=== PATIENT | female | born 2000 | race Caucasian/White ===

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

== ENCOUNTER 2022-01-30 10:24 | Emergency (ER) | payer OTHER, MEDICAID, SELFPAY ==
[2022-01-30 10:27] VITALS: BP 133/63; PULSE 63; RESP 16; TEMP 37.2; O2SAT 97; BMI 28.0
--- NOTE | 2022-01-30 10:34 | DI.US.S_ITS ---
PROCEDURE: US PELVIC COMPLETE INDICATIONS: hx complex ovarian cyst, pelvic pain TECHNIQUE: Real-time scanning was performed of the pelvic organs, with image documentation. Additional endovaginal scanning was necessary due to incomplete visualization of the adnexal and endometrial structures by transabdominal scanning. COMPARISON: Merged With [facility], US, US PELVIC COMPLETE, 10/23/2021, 16:05. FINDINGS: Uterus: Uterus is anteverted and normal in size at 7.6 x 3.5 x 4.4 cm. The myometrium is homogeneous. The endometrium measures 4 mm combined thickness. Ovaries: The right ovary measures 3.4 x 2.6 x 2 cm and demonstrates more than 12 follicles. The left ovary measures 6 x 2.8 x 4.2 cm and demonstrates a complex hyperechoic mass that measures 4.2 x 2.7 x 3.6 cm, which previously measured 5.8 x 3.3 x 4 cm. Normal appearing arterial waveforms are confirmed to each ovary. No adnexal masses are seen on either side. Other: No pathologic free abdominal or pelvic fluid. IMPRESSION: Apparent left ovarian dermoid seen, which is not enlarged compared to the prior ultrasound. No findings of ovarian torsion are seen. More than 12 follicles can be seen involving the right ovary, which is consistent with polycystic ovarian syndrome. We strive to produce accurate, complete, and clear reports of imaging services. To assist us in improving patient care, this report was composed using standard report templates and voice recognition software. Therefore, it may contain abnormal punctuation, insertions and/or omissions. Occasional wrong-word or sound-alike substitutions may occur. Though we review the report and make efforts to correct it, we do recommend that the report be read carefully in proper context to recognize any text inaccuracies. Dictated by: Jasibr Moseley M.D. on 01/30/2022 at 11:21 Approved by: Jasbir Moseley M.D. on 01/30/2022 at 11:24
[2022-01-30 10:46] LABS: Add Manual Diff / Slide Review NO; Basophils Absolute Auto 0 /uL (0-100); Basophils Percent Auto 0.7 % (0-2); Eosinophils Absolute Auto 600 /uL (0-450); Eosinophils Percent Auto 9.1 % (2-4); Hematocrit 36.9 % (36-46); Hemoglobin 12.4 g/dL (12.0-16.0); Lymphocytes Absolute Auto 1100 /uL (1100-4500); Lymphocytes Percent Auto 17.5 % (25-40); Mean Corpuscular HGB Conc 33.7 % (30-36); Mean Corpuscular Hemoglobin 29.4 PG (26-34); Mean Corpuscular Volume 87.3 fL (80-100); Monocytes Absolute Auto 500 /uL (0-900); Monocytes Percent Auto 8.4 % (3-14); Neutrophils Absolute Auto 4100 /uL (1500-7000); Neutrophils Percent Auto 64.3 % (50-75); Platelet Count 267 X10^3/uL (150-400); Red Blood Cell Count 4.22 X10^6/uL (4.0-5.2); Red Cell Distribution Width 14.4 % (11.6-14.8); White Blood Cell Count 6.4 X10^3/uL (4.5-11.0)
[2022-01-30 10:48] LABS: Prothrombin Time 11.8 SECONDS (10.1-12.7)
[2022-01-30 10:51] LABS: PTT Partial Thromboplastin Tim 32 SECONDS (26-36)
[2022-01-30 11:03] LABS: Alanine Aminotransferase 13 IU/L (<35); Albumin 4.2 g/dL (3.5-5.0); Albumin Globulin Ratio 1.4 (1.0-2.8); Alkaline Phosphatase 69 U/L (38-126); Aspartate Aminotransferase 26 IU/L (14-36); BUN Creatinine Ratio 10.5 (6-22); Bilirubin Total 0.8 mg/dL (0.2-1.3); Blood Urea Nitrogen 8 mg/dL (7-17); Calcium 9.4 mg/dL (8.4-10.2); Carbon Dioxide 22 mmol/L (22-32); Chloride 110 mmol/L (98-107); Estimated Glomerular Filt Rate > 60 mL/min (>60); Globulin 3.1 g/dL (1.7-4.1); Glucose 113 mg/dL (70-100); HEMOLYSIS 25 (0-50); Lipase 49 U/L (23-300); Potassium 4.1 mmol/L (3.4-5.1); Sodium 139 mmol/L (137-145); Total Protein 7.3 g/dL (6.3-8.2)
--- NOTE | 2022-01-30 12:28 | ED_ITS ---
HPI - Abdominal Pain <Wang Hermosillo PA-C - Last Filed: 01/30/22 13:27> General Chief Complaint: Abdominal Pain Stated Complaint: abd pain Time Seen by Provider: 01/30/22 10:33 Mode of arrival: EMS History of Present Illness HPI narrative: Patient is a 21-year-old female who presents to the emergency room today with complaint of abdominal pain started this morning. No shortness with this abdominal pain has been going on for multiple months now this started and around August. States that the pain has been going on since August and has varied in his presentation. She states the pain ranges from a stabbing burning to a dull ache. She states this morning that the pain was more of a burning that peaked as a throbbing nerve type pain in the entire lower abdomen. Also describes the pain as being about 5-6 in intensity at this time. States the tingling is throughout the entire abdomen. Also admits to an ovarian cyst that was di agnosed last year in November and is scheduled for surgery on the 08 of February to have it removed. Was told by her provider at [facility] Dr. Burnette that all her symptoms completely related to disease. Also has a scheduled appointment with her PCP on February 08 where she will be receiving a referral to coding quality analyst. Ovarian cyst was diagnosed at a hospital in [facility] and was where she met Dr. Burnette. Also states that Dr. Burnette wants to rule her out for polycystic ovarian syndrome that he will do at her preop visit. Admits to history of anxiety and history of Kanavel hyperemesis syndrome. Patient also states that her appendix was removed 7 years ago. Denies any other concerns at this time Related Data Previous Rx's Medication Instructions Recorded doxycycline hyclate 100 mg tablet 100 mg PO BID #20 tabs 12/25/20 Allergies Allergy/AdvReac Type Severity Reaction Status Date / Time amoxicillin [AMOXICILLIN] Allergy Unknown Verified 10/23/21 11:15 Review of Systems <Wang Hermosillo PA-C - Last Filed: 01/30/22 13:27> Review of Systems Narrative: REVIEW OF SYSTEMS:. General: No weight change, generally healthy, no change in strength or exercise tolerance. No fever/chill. No fatigue. Head: No headaches, no vertigo, no injury. Eyes: Normal vision, no diplopia, no tearing, no scotomata, no pain. Ears: No change in hearing, no tinnitus, no bleeding, no vertigo. Nose: No epistaxis, no coryza, no obstruction, no discharge. Mouth: No dental difficulties, no gingival bleeding, no use of dentures. Neck: No stiffness, no pain, no tenderness, no noted masses. Chest: No dyspnea, no wheezing, no hemoptysis, no cough. Heart: No chest pains, no palpitations, no syncope, no orthopnea. Abdomen: Abdominal pain Musculoskeletal: No pain in muscles or joints, no limitation of range of motion, no paresthesia or numbness. Neurologic: No weakness, no tremor, no seizures, no changes in mentation, no ataxia. Psychiatric: No depressive symptoms, no changes in sleep habits, no changes in thought content.. Patient History <Wang Hermosillo PA-C - Last Filed: 01/30/22 13:27> Social History Smoking Status: Current some day smoker Smoking Status: Current some day smoker tobacco type: vaping alcohol intake frequency: holidays/special occasions only Substance Use Type: marijuana Exam <Wang Hermosillo PA-C - Last Filed: 01/30/22 13:27> Narrative Exam Narrative: Physical Exam: General: Normal appearance, well developed, well nourished, alert, and awake. Not in acute distress. ? Head: Normocephalic, no lesions. ?? Eyes: PERRLA, EOM's full, conjunctivae clear. ? Ears: EAC's clear, TM's normal. ?? Throat: Clear, no exudates, no lesions. ?? Neck: Supple, no masses, no thyromegaly, no bruits. ?? Chest: Lungs clear, no rales, no rhonchi, no wheezes. ?? Heart: RR, no murmurs, no rubs, no gallops. ?? Neuro: Physiological, no localizing findings, CN2-12 intact. ?? Extremities: Warm, well perfused, FROM, no deformities, no edema, no erythema. ?? PSYCHIATRIC: The mood is good, no blunted affect. Speech is clear. Thought process is linear, thought content is appropriate. The voice is without significant inflection.. Gastrointestinal: Soft; tenderness to palpation in the left upper quadrant and bilateral lower quadrants; ND; Pos BS with mild rebound tenderness in the left upper quadrant. rebound tenderness. No scars or major deformities noted on Visual Inspection. Positive CVA tenderness to left side. Initial Vital Signs Initial Vital Signs: Vital Signs Temperature 98.9 F 01/30/22 10:27 Pulse Rate 63 01/30/22 10:27 Respiratory Rate 16 01/30/22 10:27 Blood Pressure 133/63 01/30/22 10:27 Pulse Oximetry 97 01/30/22 10:27 Oxygen Delivery Method 01/30/22 10:27 <Arcelia Retana DO - Last Filed: 02/05/22 08:14> Initial Vital Signs Initial Vital Signs: Vital Signs Temperature 98.9 F 01/30/22 10:27 Pulse Rate 63 01/30/22 10:27 Respiratory Rate 16 01/30/22 10:27 Blood Pressure 133/63 01/30/22 10:27 Pulse Oximetry 97 01/30/22 10:27 Oxygen Delivery Method 01/30/22 10:27 Course <Wang Hermosillo PA-C - Last Filed: 01/30/22 13:27> Orders Ordered: ED Orders 01/30/22 10:29 EKG-12 Lead Stat 01/30/22 10:30 Complete Blood Count AUTO DIFF Stat Comprehensive Metabolic Panel Stat Lipase Stat Partial Thromboplastin Time Stat Prothrombin Time INR Stat 01/30/22 10:34 US pelvic complete Stat Vital Signs Vital signs: Vital Signs - 8 hr 01/30/22 10:27 Temperature 98.9 F Pulse Rate 63 Respiratory Rate 16 Blood Pressure 133/63 Pulse Oximetry 97 Oxygen Delivery Method Room Air <DO Joanne Vallejo Last Filed: 02/05/22 08:14> Orders Ordered: ED Orders 01/30/22 10:29 EKG-12 Lead Stat 01/30/22 10:30 Complete Blood Count AUTO DIFF Stat Comprehensive Metabolic Panel Stat Lipase Stat Partial Thromboplastin Time Stat Prothrombin Time INR Stat 01/30/22 10:34 US pelvic complete Stat Vital Signs Vital signs: Vital Signs - 8 hr 01/30/22 10:27 Temperature 98.9 F Pulse Rate 63 Respiratory Rate 16 Blood Pressure 133/63 Pulse Oximetry 97 Oxygen Delivery Method Room Air MDM - Abdominal Pain <NURIA Keller Last Filed: 01/30/22 13:27> Lab Data Result diagrams: 01/30/22 10:30 01/30/22 10:30 Labs: Lab Results 01/30/22 01/30/22 01/30/22 Range/Units 10:30 10:30 10:30 WBC 6.4 (4.5-11.0) X10^3/uL RBC 4.22 (4.0-5.2) X10^6/uL Hgb 12.4 (12.0-16.0) g/dL Hct 36.9 (36-46) % MCV 87.3 (80-100) fL MCH 29.4 (26-34) PG MCHC 33.7 (30-36) % RDW 14.4 (11.6-14.8) % Plt Count 267 (150-400) X10^3/uL Neut % (Auto) 64.3 (50-75) % Lymph % (Auto) 17.5 L (25-40) % Newton % (Auto) 8.4 (3-14) % Eos % (Auto) 9.1 H (2-4) % Baso % (Auto) 0.7 (0-2) % Neut # (Auto) 4100 (5721-7720) /uL Lymph # (Auto) 1100 (1315-3829) /uL Newton # (Auto) 500 (0-900) /uL Eos # (Auto) 600 H (0-450) /uL Baso # (Auto) 0 (0-100) /uL PT 11.8 (10.1-12.7) SECONDS INR 1.0 (0.9-1.3) APTT 32 (26-36) SECONDS Sodium 139 (137-145) mmol/L Potassium 4.1 (3.4-5.1) mmol/L Chloride 110 H (98-107) mmol/L Carbon Dioxide 22 (22-32) mmol/L BUN 8 (7-17) mg/dL Creatinine 0.76 (0.52-1.04) mg/dL Estimated GFR > 60 (>60) mL/min BUN/Creatinine Ratio 10.5 (6-22) Glucose 113 H (70-100) mg/dL Calcium 9.4 (8.4-10.2) mg/dL Total Bilirubin 0.8 (0.2-1.3) mg/dL AST 26 (14-36) IU/L ALT 13 (<35) IU/L Alkaline Phosphatase 69 (38-126) U/L Total Protein 7.3 (6.3-8.2) g/dL Albumin 4.2 (3.5-5.0) g/dL Globulin 3.1 (1.7-4.1) g/dL Albumin/Globulin Ratio 1.4 (1.0-2.8) Lipase 49 (23-300) U/L Urine RBC (0-5/HPF) Urine WBC (0-5/HPF) Urine Bacteria (None) Ur Culture Indicated? 01/30/22 Range/Units 12:57 WBC (4.5-11.0) X10^3/uL RBC (4.0-5.2) X10^6/uL Hgb (12.0-16.0) g/dL Hct (36-46) % MCV (80-100) fL MCH (26-34) PG MCHC (30-36) % RDW (11.6-14.8) % Plt Count (150-400) X10^3/uL Neut % (Auto) (50-75) % Lymph % (Auto) (25-40) % Newton % (Auto) (3-14) % Eos % (Auto) (2-4) % Baso % (Auto) (0-2) % Neut # (Auto) (0990-1343) /uL Lymph # (Auto) (7644-8424) /uL Newton # (Auto) (0-900) /uL Eos # (Auto) (0-450) /uL Baso # (Auto) (0-100) /uL PT (10.1-12.7) SECONDS INR (0.9-1.3) APTT (26-36) SECONDS Sodium (137-145) mmol/L Potassium (3.4-5.1) mmol/L Chloride (98-107) mmol/L Carbon Dioxide (22-32) mmol/L BUN (7-17) mg/dL Creatinine (0.52-1.04) mg/dL Estimated GFR (>60) mL/min BUN/Creatinine Ratio (6-22) Glucose (70-100) mg/dL Calcium (8.4-10.2) mg/dL Total Bilirubin (0.2-1.3) mg/dL AST (14-36) IU/L ALT (<35) IU/L Alkaline Phosphatase (38-126) U/L Total Protein (6.3-8.2) g/dL Albumin (3.5-5.0) g/dL Globulin (1.7-4.1) g/dL Albumin/Globulin Ratio (1.0-2.8) Lipase (23-300) U/L Urine RBC 1-5/hpf (0-5/HPF) Urine WBC None seen (0-5/HPF) Urine Bacteria None seen (None) Ur Culture Indicated? Cult not indicated Point of care testing: Point of Care Testing Test Results Negative Urine Dip Bedside Urine Glucose Negative Bedside Urine Bilirubin - Negative Bedside Urine Ketone - Negative Urine Specific [place] 1.010 Bedside Urine Occult Blood +++ Bedside Urine pH 8.5 Bedside Urine Protein - Negative Bedside Urine Urobilinogen - Negative Bedside Urine Nitrite - Negative Bedside Urine Leukocytes - Negative Esterase Imaging Data US - abdomen: Radiologist's Impression: PROCEDURE: US PELVIC COMPLETE INDICATIONS: hx complex ovarian cyst, pelvic pain TECHNIQUE: Real-time scanning was performed of the pelvic organs, with image documentation. Additional endovaginal scanning was necessary due to incomplete visualization of the adnexal and endometrial structures by transabdominal scanning. COMPARISON: [facility], , US PELVIC COMPLETE, 10/23/2021, 16:05. FINDINGS: Uterus: Uterus is anteverted and normal in size at 7.6 x 3.5 x 4.4 cm. The myometrium is homogeneous. The endometrium measures 4 mm combined thickness. Ovaries: The right ovary measures 3.4 x 2.6 x 2 cm and demonstrates more than 12 follicles. The left ovary measures 6 x 2.8 x 4.2 cm and demonstrates a complex hyperechoic mass that measures 4.2 x 2.7 x 3.6 cm, which previously measured 5.8 x 3.3 x 4 cm. Normal appearing arterial waveforms are confirmed to each ovary. No adnexal masses are seen on either side. Other: No pathologic free abdominal or pelvic fluid. IMPRESSION: Apparent left ovarian dermoid seen, which is not enlarged compared to the prior ultrasound. No findings of ovarian torsion are seen. More than 12 follicles can be seen involving the right ovary, which is consistent with polycystic ovarian syndrome. We strive to produce accurate, complete, and clear reports of imaging services. To assist us in improving patient care, this report was composed using standard report templates and voice recognition software. Therefore, it may contain abnormal punctuation, insertions and/or omissions. Occasional wrong-word or sound-alike substitutions may occur. Though we review the report and make efforts to correct it, we do recommend that the report be read carefully in proper context to recognize any text inaccuracies. Dictated by: Jasbir Moseley M.D. on 01/30/2022 at 11:21 Approved by: Jasbir Moseley M.D. on 01/30/2022 at 11:24 [facility] Narrative Medical decision making narrative: Patient is a 21-year-old female who presents to the emergency room today with complaint of abdominal pain that started in August of this year but peaked this morning. Pain is described as a burning throbbing tingling pain throughout the entire abdominal area. Intensity of pain is about a 5-6 at this time. Patient is not requesting any pain medicine. Patient has been seen a woman's health provider and has surgery scheduled to remove a ovarian cyst on the 08 of February. Patient also already has an appointment scheduled with her PCP to be scheduled for permanent coding quality analyst provider on the 11 of February. Patient also will be discussed discussing workup to rule out polycystic ovarian syndrome with her provider at her preop visit. Ultrasound done confirm cyst to be present and not enlarged compared to prior ultrasound. Blood Labs do not identify any current infection. Urinalysis to include test were ordered and results were negative and unremarkable.. Patient states she is okay in regards to pain and does not need any pain management at this time. And agrees that she will follow-up with her OBGYN and PCP providers. Patient to be discharged and agrees with plan. <Arcelia Retana, DO - Last Filed: 02/05/22 08:14> Lab Data Labs: Lab Results 01/30/22 01/30/22 01/30/22 Range/Units 10:30 10:30 10:30 WBC 6.4 (4.5-11.0) X10^3/uL RBC 4.22 (4.0-5.2) X10^6/uL Hgb 12.4 (12.0-16.0) g/dL Hct 36.9 (36-46) % MCV 87.3 (80-100) fL MCH 29.4 (26-34) PG MCHC 33.7 (30-36) % RDW 14.4 (11.6-14.8) % Plt Count 267 (150-400) X10^3/uL Neut % (Auto) 64.3 (50-75) % Lymph % (Auto) 17.5 L (25-40) % Newton % (Auto) 8.4 (3-14) % Eos % (Auto) 9.1 H (2-4) % Baso % (Auto) 0.7 (0-2) % Neut # (Auto) 4100 (8454-2174) /uL Lymph # (Auto) 1100 (2551-2502) /uL Newton # (Auto) 500 (0-900) /uL Eos # (Auto) 600 H (0-450) /uL Baso # (Auto) 0 (0-100) /uL PT 11.8 (10.1-12.7) SECONDS INR 1.0 (0.9-1.3) APTT 32 (26-36) SECONDS Sodium 139 (137-145) mmol/L Potassium 4.1 (3.4-5.1) mmol/L Chloride 110 H (98-107) mmol/L Carbon Dioxide 22 (22-32) mmol/L BUN 8 (7-17) mg/dL Creatinine 0.76 (0.52-1.04) mg/dL Estimated GFR > 60 (>60) mL/min BUN/Creatinine Ratio 10.5 (6-22) Glucose 113 H (70-100) mg/dL Calcium 9.4 (8.4-10.2) mg/dL Total Bilirubin 0.8 (0.2-1.3) mg/dL AST 26 (14-36) IU/L ALT 13 (<35) IU/L Alkaline Phosphatase 69 (38-126) U/L Total Protein 7.3 (6.3-8.2) g/dL Albumin 4.2 (3.5-5.0) g/dL Globulin 3.1 (1.7-4.1) g/dL Albumin/Globulin Ratio 1.4 (1.0-2.8) Lipase 49 (23-300) U/L Urine RBC (0-5/HPF) Urine WBC (0-5/HPF) Urine Bacteria (None) Ur Culture Indicated? 01/30/22 Range/Units 12:57 WBC (4.5-11.0) X10^3/uL RBC (4.0-5.2) X10^6/uL Hgb (12.0-16.0) g/dL Hct (36-46) % MCV (80-100) fL MCH (26-34) PG MCHC (30-36) % RDW (11.6-14.8) % Plt Count (150-400) X10^3/uL Neut % (Auto) (50-75) % Lymph % (Auto) (25-40) % Newton % (Auto) (3-14) % Eos % (Auto) (2-4) % Baso % (Auto) (0-2) % Neut # (Auto) (7624-2343) /uL Lymph # (Auto) (9445-9283) /uL Newton # (Auto) (0-900) /uL Eos # (Auto) (0-450) /uL Baso # (Auto) (0-100) /uL PT (10.1-12.7) SECONDS INR (0.9-1.3) APTT (26-36) SECONDS Sodium (137-145) mmol/L Potassium (3.4-5.1) mmol/L Chloride (98-107) mmol/L Carbon Dioxide (22-32) mmol/L BUN (7-17) mg/dL Creatinine (0.52-1.04) mg/dL Estimated GFR (>60) mL/min BUN/Creatinine Ratio (6-22) Glucose (70-100) mg/dL Calcium (8.4-10.2) mg/dL Total Bilirubin (0.2-1.3) mg/dL AST (14-36) IU/L ALT (<35) IU/L Alkaline Phosphatase (38-126) U/L Total Protein (6.3-8.2) g/dL Albumin (3.5-5.0) g/dL Globulin (1.7-4.1) g/dL Albumin/Globulin Ratio (1.0-2.8) Lipase (23-300) U/L Urine RBC 1-5/hpf (0-5/HPF) Urine WBC None seen (0-5/HPF) Urine Bacteria None seen (None) Ur Culture Indicated? Cult not indicated Point of care testing: Point of Care Testing Test Results Negative Urine Dip Bedside Urine Glucose Negative Bedside Urine Bilirubin - Negative Bedside Urine Ketone - Negative Urine Specific [place] 1.010 Bedside Urine Occult Blood +++ Bedside Urine pH 8.5 Bedside Urine Protein - Negative Bedside Urine Urobilinogen - Negative Bedside Urine Nitrite - Negative Bedside Urine Leukocytes - Negative Esterase Discharge Plan Departure Patient Disposition: Home Clinical Impression: Abdominal pain Instructions: DI for Abdominal Pain-Adult Activity Restrictions/Additional Instructions: *You have been diagnosed with abdominal pain. The origin of the abdominal pain without been completely identified but likely as result either your ovarian size or possibly undiagnosed polycystic ovarian syndrome. Labs and diagnostics did not revealed any emergent concerns at this time. Urine of being released from the emergency room and I suggested follow-up with your OBGYN and primary care providers or any non emergent concerns. Please return to the emergency room should any emergent concerns arise.] *What to do: *Please continue to take your regular medications as directed. [ ] New medication prescriptions sent to your pharmacy: [ ] [ ] New medication written as a paper prescription [x] No new medications given *Please follow up with your primary care provider in 2-3 days, call for an appointment. Let them know you were seen in the Emergency Department and that we ask that you be seen in follow up. We will electronically transmit a record of today's note if your PCP is in our system *If you do not have a primary care provider please contact the [facility] Resource line at [phone]. They will ask some questions about your medical history and help get you set up with a doctor in the community. *Return to Emergency Department if you should have any new, worsening or concerning symptoms, such as [fever greater than 101 F, shaking chills, worsening pain, persistent vomiting or other bothersome symptoms] Prescriptions: No Action doxycycline hyclate 100 mg tablet 100 mg PO BID Qty: 20 0RF Visit Report Forms: Patient Portal/API <Arcelia Retana DO - Last Filed: 02/05/22 08:14> Cosign ED Attending Christy Attestation: I was immediately available in the department for consultation. Documentation has been reviewed. Patient case was discussed with myself. Patient presents with known ovarian cyst with plan to have it removed surgically in the near future. Patient did not have any other clear causes of pain today that are yobany gent.
[2022-01-30 13:33] VITALS: BP 107/57; PULSE 80; RESP 16; O2SAT 99
[2022-01-30 13:39] LABS: Bacteria Urine None Seen; Culture Indicated Urine Cult Not Indicated; RBC Urine 1-5/HPF (0-5/HPF); WBC Urine None Seen (0-5/HPF)
== END 2022-01-30 13:34 | disposition home or self-care (01) ==
PROVIDERS: Emergency Medicine; Emergency Provider Physician Assistant
DX: R10.9 Unspecified abdominal pain (principal); R10.2 Pelvic and perineal pain; N83.209 Unspecified ovarian cyst, unspecified side; N83.202 Unspecified ovarian cyst, left side
CPT/HCPCS: 36415; 76830; 76856; 80053; 81003; 81015; 81025; 83690; 85025; 85610; 85730; 93005; 93976; 99284